=== PATIENT | male | born 1960 | race Caucasian/White ===

== ENCOUNTER 2024-01-11 07:56 | Day surgery (SDC) | payer OTHER, SELFPAY ==
[2024-01-04 10:29] LABS: % Basophils 0.4 % (0-2); % Eosinophils 3.2 % (0-6); % Immature Granulocytes 0.2 % (0-0.5); % Lymphocytes 30.1 % (20.5-51.1); % Monocytes 8.9 % (1.7-9.3); % Neutrophils 57.2 % (42.2-75.2); Absolute Eosinophils 0.3 10^3/uL (0-0.7); Absolute Lymphocytes 2.5 10^3/uL (1.2-3.4); Absolute Monocytes 0.8 10^3/uL (0.1-0.6); Absolute Neutrophils 4.8 10^3/uL (1.4-6.5); Hematocrit 45.3 % (39.0-52.0); Hemoglobin 15.5 g/dL (13.0-18.0); Mean Corp Hgb Conc. 34.2 g/dL (33.0-37.0); Mean Corpuscular Hgb 28.5 pg (27.0-31.0); Mean Corpuscular Volume 83.3 fL (80.0-94.0); Mean Platelet Volume 10.6 fL (7.4-10.4); Nucleated Red Blood Cells % 0 % (-); Platelet Count 219 10^3/uL (130-400); Red Blood Cell Count 5.44 10^6/uL (4.70-6.10); Red Cell Dist. Width 13.1 % (11.5-14.5); White Blood Cell Count 8.5 10^3/uL (4.8-10.8)
[2024-01-04 10:36] LABS: ALT (SGPT) 23 U/L (0-50); AST (SGOT) 23 U/L (17-59); Albumin 4.7 g/dl (3.5-5.0); Alkaline Phosphatase 47 U/L (38-126); Blood Urea Nitrogen 26 mg/dl (9-20); Carbon Dioxide 24 mmol/L (22-30); Chloride 105 mmol/L (98-107); Glucose 144 mg/dl (70-99); Potassium 4.6 mmol/L (3.5-5.1); Sodium 142 mmol/L (135-145); Total Bilirubin 1.2 mg/dl (0.2-1.3); Total Protein 7.4 g/dl (6.3-8.2); eGFR > 60.00
[2024-01-04 13:46] VITALS: BMI 40.5
[2024-01-11] VITALS (12 sets, daily range): BP systolic 100–123; BP diastolic 71–83
[2024-01-11 08:59] LABS: Glucose - Point of Care 130 mg/dl (70-99)
--- NOTE | 2024-01-11 11:46 | ITS.CL.CATH ---
Hepatology Physician - Catheterization
Cardiac Catheterization
Procedure Report:
CARDIAC CATHETERIZATION REPORT
Date of Procedure: 01/11/2024
Referring: César Hurt MD
Indication: Angina with known CAD (prior stent 2022 in [place])
�
HEMODYNAMIC DATA
AO: 162/80
LV: 162/20
�
LEFT VENTRICULOGRAPHY: Normal left ventricular wall motion with EF 62%
�
CORONARY ANGIOGRAPHY
Dominance: Right
Left Main: Normal
LAD: Mild luminal irregularities in the mid and distal LAD
Circumflex: There is a small ramus intermedius branch with mild luminal disease. There is a focal 80% proximal circumflex stenosis distal to the takeoff of a twig like OM1 and proximal to the origin of a large OM 2. OM 2 has mild luminal disease.
OM 3 is small with mild ostial disease. The circumflex terminates with a large left posterolateral branch with mild luminal disease.
RCA: Dominant vessel with 20% mid stenosis. There is a patent stent extending from the distal RCA into the RPDA. The stent has no significant restenosis. The PDA has 30% mid stenosis. The right AV groove branch supplies two small right
posterolateral branches
Angioplasty: At the conclusion of the diagnostic study the patient underwent circumflex PCI. Heparin is used for anticoagulation. Plavix 300 mg was administered at the procedure conclusion as the patient currently takes Plavix. An EBU 3.75 guide
catheter was used. A BMW wire was advanced into the distal circumflex. A 3.5 x 15 Xience [place] JENNIE was carefully placed so that its distal margin was just proximal to the takeoff of the large OM 2. Deployment at 14 radha was followed by
postdilatation using a 3.5 NC emerge to 17 radha. The final angiographic result was outstanding. There was no residual stenosis. There were no procedural complications.
�
Closure Device: None-the procedure was performed via the right radial artery. The Jimbo's test was normal prior to the procedure.
�
Radiation (mGy): 522
DAP (cm2.Gy): 39.6
Fluoroscopy time: 8.2 minutes
�
CONCLUSIONS
1:�Systemic hypertension
2:�Elevated LVEDP
3. Normal left ventricular systolic function with EF 62%
4. Severe single-vessel CAD as described involving the proximal circumflex artery. The previously placed RPDA stent is widely patent
5. Successful stenting of 80% proximal circumflex lesion using 3.5 x 15 Xience JENNIE with outstanding final angiographic result
6. Recommend triple therapy therapy (aspirin, Plavix, Eliquis) for 1 week then stop aspirin and continue Eliquis and Plavix for 12 months after which time aspirin can be substituted for Plavix. Continue aggressive risk factor modification efforts
including control of diabetes and statin to achieve LDL less than 70 with a goal of 55
�
�
Copy to: Nicole MD, Consuelo Perez MD
�
Babatunde Nelson MD, [facility], [facility]
[2024-01-11 13:06] LABS: ACT-LR - POC 266 Seconds (116-155)
[2024-01-11 13:10] LABS: ACT-LR - POC > 397 Seconds (116-155)
--- NOTE | 2024-01-11 14:24 | W.PN.UPDATE ---
Update Note
Progress Note Update
63 yo [place] male s/p PCI LCx (same day). He denies cp, sob, liz diet, voiding, amb w/o dizziness, EKG SR no new ST changes, R rad site c/d/i no HT. He will be on triples ASA/Plavix/Eliquis for 1 week then STOP ASA. He will Hold Metformin post cath
48 hrs. Cardiac rehab c/s. He will f/u Dr. Hurt in 2-4 weeks. He is for d/c home after 3pm.
CONCLUSIONS
1:�Systemic hypertension
2:�Elevated LVEDP
3. Normal left ventricular systolic function with EF 62%
4. Severe single-vessel CAD as described involving the proximal circumflex artery. The previously placed RPDA stent is widely patent
5. Successful stenting of 80% proximal circumflex lesion using 3.5 x 15 Xience JENNIE with outstanding final angiographic result
6. Recommend triple therapy therapy (aspirin, Plavix, Eliquis) for 1 week then stop aspirin and continue Eliquis and Plavix for 12 months after which time aspirin can be substituted for Plavix. Continue aggressive risk factor modification efforts
including control of diabetes and statin to achieve LDL less than 70 with a goal of 55
�
== END 2024-01-11 15:30 | disposition home or self-care (01) ==
LOC: CATH 07:56
PROVIDERS: ATTENDING PHYSICIAN Internal Medicine Cardiovascular Disease; REFERRING PHYSICIAN Internal Medicine Cardiovascular Disease
DX: I25.119 Atherosclerotic heart disease of native coronary artery with unspecified angina pectoris (principal); I11.9 Hypertensive heart disease without heart failure; E11.9 Type 2 diabetes mellitus without complications; Z95.5 Presence of coronary angioplasty implant and graft; Z79.82 Long term (current) use of aspirin; Z79.02 Long term (current) use of antithrombotics/antiplatelets; Z79.899 Other long term (current) drug therapy; Z79.84 Long term (current) use of oral hypoglycemic drugs; Z79.01 Long term (current) use of anticoagulants; E78.5 Hyperlipidemia, unspecified; Z86.73 Personal history of transient ischemic attack (TIA), and cerebral infarction without residual deficits; I48.0 Paroxysmal atrial fibrillation; E66.9 Obesity, unspecified; Z68.38 Body mass index [BMI] 38.0-38.9, adult
CPT/HCPCS: 36415; 80053; 82962; 85025; 85347; 93005; 93458; C1725; C1769; C1874; C1894; C9600; Q9967